=== PATIENT | male | born 1975 | race Caucasian/White ===

== ENCOUNTER 2022-12-11 09:23 | Emergency (ER) | payer MEDICAID ==
--- NOTE | 2022-12-11 09:36 | NUR ---
CALLED TO TRIAGE NO RESPONSE
--- NOTE | 2022-12-11 09:51 | NUR ---
PT STATING THAT HE DOESNT WANT TO BE SEEN ANYMORE, STATES THAT HE FEELS CALM RIGHT NOW. PT A/OX4, NO AGITATION NOTED AT THIS TIME. SEEN WALKING OUT OF THE ED
--- NOTE | 2022-12-11 09:52 | NUR ---
PATIENT LEFT WITHOUT BEING SEEN BY DR. MC. NO FURTHER CARE PROVIDED FOR PATIENT.
== END 2022-12-11 09:52 | disposition left against medical advice (07) ==
LOC: MED 09:23
DX: F41.0 Panic disorder [episodic paroxysmal anxiety] (principal); Z53.21 Procedure and treatment not carried out due to patient leaving prior to being seen by health care provider